=== PATIENT | female | born 1955 | race Caucasian/White ===

== ENCOUNTER 2016-06-30 08:30 | Inpatient (IN) | payer MEDICAID, MEDICARE ==
[~2016-06-30] VITALS: Ht 157.5 cm; Wt 141.4 kg
[2016-06-30 08:30] VITALS: BP 145/78; PULSE 84; RESP 23; O2SAT 96
[~2016-06-30 08:30] MED LIST: ALBU8.5H4 IH; AMLO5TAB2 PO; ARIP5TAB5 PO; CITA40TA13 PO; DSLF250T PO; GABA-502 PO; HYDR-579 PO; LIT300 PO; MELA1TAB21 PO; MIRT15TA3 PO; OMEP-113 PO; PREN-99 PO; RANI150C4 PO; TIOT18CA3 IH; ZES20T PO
--- NOTE | 2016-06-30 08:57 | ED.REPORT ---
HPI-Overdose/Alcohol Toxicity Date of Service Jun 30, 2016 ED Provider: Jens Medel MD The patient is a 60 year old male with history of bipolar disorder, prior suicide attempts, alcohol abuse, fibromyalgia, and hypertension, who presents to the emergency department by EMS for a suicide attempt. The patient states that she took a handful (about 20) of sleeping pills (doxylamine succinate 25 mg tablets) at around 0700 this morning in attempt to kill herself. She has been under a lot of stress recently. She reports that she is currently being evicted from her apartment. The patient states, "I just want to go to sleep and just not wake up. I am tired." She reports that she tried to kill herself last week by overdosing on Benadryl. She was not seen for this attempt. She denies homicidal ideation or hallucinations. She would like to be admitted to the hospital for help. She does not feel like she an be safe if she goes home today. Her only physical complaint at this time is that her mouth is dry. Nursing Notes Stated Complaint: OVERDOSE Chief Complaint: Substance Abuse Nursing Notes Reviewed: Yes Allergies: Coded Allergies: amoxicillin trihydrate (Verified Allergy, Intermediate, itching, 06/30/16) potassium clavulanate (Verified Allergy, Intermediate, itching, 06/30/16) Scheduled Amlodipine (Amlodipine) 5 Mg Tablet 5 MG PO DAILY Aripiprazole (Abilify) 5 Mg Tablet 5 MG PO HS Citalopram (Citalopram) 40 Mg Tablet 40 MG PO DAILY Disulfiram (Antabuse) 250 Mg Tablet 250 MG PO DAILY Gabapentin (Gabapentin) 300 Mg Capsule 300 MG PO TID Hydrocodone/Acetaminophen ([place] 10-325 Tablet) 1 Each Tablet 1 EACH PO Q8 Lisinopril-Expunged Drug, Do Not Renew! (Lisinopril-Expunged Drug, Do Not Renew! ) 20 Mg Tablet 20 MG PO DAILY [place] Carbonate ([place] Carbonate) 300 Mg Cap 300 MG PO DAILY Mirtazapine ODT (Remeron ODT) 15 Mg Tab.rapdis 15 MG PO HS Omeprazole Magnesium (Omeprazole) 20 Mg Capsule.dr 20 MG PO DAILY Pnv95/Ferrous Fumarate/FA ( Multivitamins Tablet) 1 Each Tablet 1 EACH PO DAILY Ranitidine (Ranitidine) 150 Mg Capsule 300 MG PO DAILY Tiotropium [place] (Spiriva) 18 Mcg Cap.w.dev 18 MCG IH DAILY Scheduled PRN Albuterol HFA (Albuterol HFA) 8.5 Gm Hfa.aer.ad 2 PUFF IH Q4 PRN PRN For Shortness of Breath Melatonin/Pyridoxine HCl (B6) (Melatonin 10 mg Tablet) 1 Each Tab.mphase 1 EACH PO HS PRN PRN For Insomnia General Time Seen by Provider: 08:45 Chief Complaint Drug overdose, Suicidal attempt Modifying Factors: Intentional Hx Obtained From: Patient, EMS Arrived By: Ambulance Onset Occurred: 1 - 4 hours ago Symptom Duration: Since onset Progression Since Onset: Gradually improving Severity: Current: No pain currently Severity: Maximum: No pain Recent Healthcare: No recent hospitalization Similar Sx Previous: Yes Risk-Overdose/Alcohol Tox )( Suicide Risk Stratification : Alcohol use: Previous attempt RF Statements: Risk factors reviewed Past Medical History Past Medical History Bipolar disorder Previous suicide attempts Hypertension Hyperlipidemia Asthma Fibromyalgia Chronic alcoholism Family History Noncontributory Smoking History Current Some Day Smoker Social History History of alcohol abuse Other Social History: Good social support, Local resident Ambulatory Status Independent Review of Systems Review of Systems Note: +dry mouth Psychiatric: Reports: Anxiety, Depression, Suicidal ideation Complete sys rev & neg: except as marked. Physical Exam Initial Vital Signs Vital Signs (First) Date Time Temp Pulse Resp B/P Pulse Ox O2 Delivery O2 Flow Rate FiO2 06/30/16 08:30 36.6 84 23 145/78 96 Room Air Initial VS: Reviewed Head / Eyes: Atraumatic, Normocephalic, PERRL Neck: Supple, Non-tender, Full range of motion Lymphatic: No lymphadenopathy Extremities: Vascular intact, Neuro intact, No swelling, No tenderness Skin: Warm, Dry, No cyanosis General/Constitutional: Awake, Alert, No acute distress, Cooperative Respiratory / Chest: Atraumatic, Breath sounds NL, Breath sounds = bilat, No respiratory distress, No rales, No rhonchi, No wheezing Cardiovascular: Heart rate NL, Regular rhythm, Heart sounds NL, No gallop, No murmurs, No rubs Abdomen: Atraumatic, Soft, Non-tender, No guarding, No rebound Neurologic: Oriented X3, Speech NL, No motor deficits, No sensory deficits Abnormal Thinking / Perception: Positive: Suicidal, with plan Interpretation & Diagnostics Lab Results Interpretation Result Diagram: 06/30/16 0933 06/30/16 0933 Test 06/30/16 09:33 06/30/16 09:44 White Blood Count 15.1th/mm3 (3.8-10.1) Red Blood Count 4.76mil/mm3 (3.90-5.20) Hemoglobin 15.5g/dL (12.0-15.6) Hematocrit 45.7% (35.0-46.0) Mean Corpuscular Volume 96.0fL (81-100) Mean Corpuscular Hemoglobin 32.6pg (27.0-35.0) Mean Corpuscular Hemoglobin Concent 33.9% (32.0-37.0) Red Cell Distribution Width 12.3% (12.3-15.4) Platelet Count 269bil/L (150-400) Neutrophils (%) (Auto) 80.7% (40-74) Lymphocytes (%) (Auto) 11.9% (14-46) Monocytes (%) (Auto) 6.4% (4-12) Eosinophils (%) (Auto) 0.6% (0-5) Basophils (%) (Auto) 0.2% (0-3) Sodium Level 140mEq/L (134-144) Potassium Level 3.9mEq/L (3.5-5.2) Chloride Level 102mEq/L (97-108) Carbon Dioxide Level 21mmol/L (18-29) Blood Urea Nitrogen 11mg/dL (6-24) Creatinine 0.68mg/dL (0.57-1.00) Estimat Glomerular Filtration Rate 127mL/min (>59) Glucose Level 89mg/dL (60-99) Calcium Level 9.8mg/dL (8.5-10.1) Total Bilirubin 0.6mg/dL (0.0-1.2) Aspartate Amino Transf (AST/SGOT) 17U/L (0-50) Alanine Aminotransferase (ALT/SGPT) 7U/L (0-32) Alkaline Phosphatase 77U/L (25-150) Total Protein 7.2g/dL (6.4-8.4) Albumin 4.7g/dL (3.4-5.0) Thyroid Stimulating Hormone (TSH) 1.230uIU/mL (0.450-4.500) Salicylates Level < 3.0ug/mL (30-250) Acetaminophen Level < 15.0ug/mL Rx (10-25) Urine Color Yellow (YELLOW) Urine Appearance Clear (CLEAR,HAZY) Urine pH 6.0 (5.0-8.0) Urine Specific [place] 1.010 (1.003-1.035) Urine Protein Negativemg/dL (NEG,TRACE) Urine Glucose (UA) Negativemg/dL (NEGATIVE) Urine Ketones Negativemg/dL (NEGATIVE) Urine Occult Blood Trace (NEGATIVE) Urine Nitrite Negative (NEGATIVE) Urine Bilirubin Negative (NEGATIVE) Urine Urobilinogen Normalmg/dL (NORMAL) Urine Leukocyte Esterase Negative (NEGATIVE) Urine RBC 0-2/hpf (0-2) Urine WBC 0-5/hpf (0-5) Urine Epithelial Cells Moderate/hpf (NONE-MOD) Urine Crystals None seen (NONE SEEN) Urine Bacteria Few/hpf (NONE-FEW) Urine Hyaline Casts None/lpf (NONE) Urine Granular Casts None seen (NONE SEEN) Urine Waxy Casts None seen (NONE SEEN) Urine Red Blood Cell Casts None seen (NONE SEEN) Urine White Blood Cell Casts None seen (NONE SEEN) Urine Mucus Present (None Seen) Urine Trichomonas None seen (NONE SEEN) Urine Yeast None (NONE SEEN) Urinalysis Comment None Urine Culture Reflexed Not indicated Hold Urine Received (Received) ECG Interpretation ECG Interpretation: Sinus rhythm No ST T changes PVC Time: 09:41 Interpreted by: ED physician Re-Eval/Medical Decision Med Decision/Clinical Course 60-year-old female with history of bipolar presenting status post suicide attempt with doxylamine reports a handful just prior to arrival. She reports she was trying to kill herself due to stresses with being evicted. Discussed with poison control who recommends monitoring for symptoms of anticholinergic toxicity until 1 PM. We observed and patient with no symptoms other than some dry mouth. Discussed with social work who evaluated patient and admitted her for voluntary admission to the psychiatric [facility]. Source of Hx: Old records, EMS Re-Evaluation/Progress #1: Time of Eval: 09:29 Re-Evaluation/Progress Note: ED RN spoke with poison control who recommended monitoring the patient for 6-8 hours. Re-Evaluation/Progress #2: Time of Eval: 10:19 Re-Evaluation/Progress Note: Discussed plan for observation and social work instructor evaluation. Re-Evaluation/Progress #3: Time of Eval: 14:48 Re-Evaluation/Progress Note: Discussed plan for admission with the patient. She understands and agrees. All questions were addressed. Consultation #1: Consulted With: odd job worker Call Returned at: 11:07 Note: ED social work instructor evaluated the patient. The patient received noticed from her apartment quite a while ago and today was the last day before she is going to be kicked out. The patient does not feel like she is able to stay with either of her children. The social work instructor will work on finding placement for the patient. Consultation #2: Call Returned at: 14:43 Note: [facility] Dr. Villaseñor will admit the patient. Counseled Regarding: Diagnosis, Lab results, Need for admission Discharge & Departure Impression: Primary Impression: Medication overdose Encounter type: initial encounter Injury intent: intentional self-harm Qualified Code: T50.902A - Poisoning by unspecified drugs, medicaments and biological substances, intentional self-harm, initial encounter )( Condition at Discharge: Clear for psych facility Disposition: ADMITTED TO HOSPITAL Discharge Condition All VS Reviewed: Yes Condition: Stable Referrals: Abner Malik (PCP) Terezaibradha Attestation Portions of this note were transcribed by Anastasiya Rosales. I, Dr. Medel personally performed the history, physical exam and medical decision-making; I reviewed and confirmed the accuracy of the information in the transcribed note. Signed by: Stacy Giles, 06/30/2016 at 1500. copies to: Abner Malik Ben M MD Jun 30, 2016 08:57 Anastasiya Rosales Jun 30, 2016 09:02
[2016-06-30 09:44] LABS: BASOPHILS % (AUTO) 0.2 % (0-3); EOSINOPHILS % (AUTO) 0.6 % (0-5); MONOCYTES % (AUTO) 6.4 % (4-12); Mean Corpuscular Hemoglobin 32.6 pg (27.0-35.0); NEUTROPHILS % (AUTO) 80.7 % (40-74); Platelet Count 269 bil/L (150-400)
[2016-06-30 10:21] VITALS: BP 144/70; PULSE 80; RESP 19; O2SAT 94
[2016-06-30 11:24] LABS: APPEARANCE,URINE CLEAR (CLEAR,HAZY); COLOR,URINE YELLOW (YELLOW); OCCULT BLOOD,URINE TRACE (NEGATIVE); UROBILINOGEN,URINE NORMAL (NORMAL)
[2016-06-30 12:05] VITALS: BP 145/61; PULSE 77; RESP 22; O2SAT 94
[2016-06-30] MEDS ORDERED: Ondansetron 2 mg/mL 2 mL Inj IVPUSH PRN (14:45)
[2016-06-30] MEDS ORDERED: Alum-Mag Hydrox-Simeth 30 mL Suspension PO PRN ×2 (14:45→17:40)
[2016-06-30 14:57] VITALS: BP 134/64; PULSE 76; RESP 17; O2SAT 95
[2016-06-30] MEDS ORDERED: Magnesium Hydroxide 10 mL Oral Concentration PO PRN (17:40)
[2016-06-30] MEDS ORDERED: Benzocaine-Menthol Lozenge 2/Pkg PO PRN (17:40)
[2016-06-30] MEDS: LORazepam 1 mg Tablet PO PRN (20:18)
[2016-07-01 09:00] VITALS: BP 132/91; PULSE 85; RESP 16
[2016-07-01] MEDS ORDERED: Albuterol HFA 60 Puff 8 Gm Inhaler INHALATION PRN ×2 (09:15→10:10)
[2016-07-01] MEDS: Tiotropium 18mcg/Cap 5 Capsule Inhaler Kit INHALATION SCH (09:26)
[2016-07-01] MEDS: LORazepam 1 mg Tablet PO PRN ×2 (09:28→17:45)
--- NOTE | 2016-07-01 11:54 | HP ---
[address] [address] HISTORY AND PHYSICAL PATIENT: JORGE ORTEGA : 1955 MR#: [id number] ADMIT: 06/30/2016 JOB ID: [id number] DATE: 07/01/2016 IDENTIFICATION: Patient is a 60-year-old single white female. She recently was evicted from her apartment. She is on Social Security Disability for bipolar disorder. REASON FOR ADMISSION: Client to the emergency room after a suicide attempt by overdose. She stated that she took 20 sleeping pills in a suicide attempt, brand name Doxylamine at 7:30 a.m. on June 30. She was admitted for safety and treatment. HISTORY OF PRESENT ILLNESS: The patient presents today for evaluation and treatment of depression and suicidal ideation. I met with her for a 60 minute evaluation and reviewed course and records kept by [facility]. The patient's main issue is depression, and she is complaining of suicidal ideation with a plan to overdose on her pills. The condition has been developing over the past month. At present, it is of a moderate intensity manifesting with symptoms of poor sleep, interest, guilt, poor energy, concentration, and now suicidal ideation. She stated she has thought of killing herself all day every day for the past month. All the above is made worse by three different stressors. Number one, she lost her money and is being evicted from her apartment. Two, she has lost her money and has been off all of her medications because she cannot buy the Abilify or the Celexa. Three, she had been on hydrocodone 10 mg four times a day, and she got a new doctor last month and all of her hydrocodone has been cut off. She received some temporary relief by smoking marijuana daily. She has been a severe alcoholic in the past but had 10 years of sobriety in her 30s and has been sober for the past three years from alcohol. She is currently presenting with significant emotional liability and poor impulse control. Her judgment, insight, and reality testing are all quite good. Her coping skills have been overwhelmed. PAST HISTORY MEDICATIONS: 1. Albuterol metered-dose inhaler. 2. Spiriva inhaler. 3. Amlodipine 5 mg daily. 4. Abilify 5 mg daily. 5. Gabapentin 300 t.i.d. 6. Celexa 40 daily. 7. Remeron 15 at bedtime. ALLERGIES: 1. AMOXICILLIN. 2. POTASSIUM CLAVULANATE. ILLNESSES: Fibromyalgia, hypertension, report of cardiomyopathy. FAMILY MEDICAL HISTORY: Mother when she was 13. PAST PSYCH HISTORY: Bipolar mood disorder, admitted to the [facility] in 2013 and 2014 for depression. She stated that she worked for [employer] and had been manic from 1990 to 1999 then depressed 2000 to present. PSYCHOSOCIAL: Born in [facility], and raised there until age 9 when they moved to [place]. She dropped out of high school in the 10th grade. She got a GED at age 32. 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 DRUG AND ALCOHOL: Client was a heavy alcoholic from age 22 to 57, was sober between 32 and 42, and has been sober from 57 to 60 except for daily marijuana. RELATIONSHIP HISTORY: and . Two grown children that live in [place] in [facility]. [employer]IST: Hindu. LEGAL HISTORY: None. PHYSICAL EXAM: Vital signs: 134/64, pulse 76, respirations 17, afebrile. Neuro: Normal gait. Balance steady. Physical exam reviewed from ER and essentially normal. LABORATORY DATA: CBC, liver electrolytes, thyroid normal. UA normal. UDS positive for cannabinoids. Urine tox positive for THC. MENTAL STATUS EXAM: Client disheveled, morbidly obese, poor eye contact. Behavior was lethargic and withdrawn. Attitude was cooperative and pleasant. Mood was dysphoric. Affect labile, having tears for nearly the whole session. Thought process: Client is able to relate a coherent history. No signs of psychosis. Thought content: Significant for themes of hopelessness and helplessness and black and white thinking, seeing suicide as her only option. There was no delusional content to her thought. Alert and oriented to person, place, and date. Immediate, short, and long-term memory intact. Attention and concentration mildly impaired. Insight appropriate. Judgment impaired. Impulse control, unable to handle current impulses of fear, anger, and sadness. Reality testing intact. Competence to handle current stressors is currently being overwhelmed. IMPRESSION: The patient is a 60-year-old white female who is been struggling with health issues related to obesity, and chronic pain. She recently had her primary care doctor refuse to prescribe hydrocodone which she was taking four times a day. She has been off this for the past month. Since then, she has lost her home due to not being able to pay for the rent, and she was unable to buy her Abilify, gabapentin, or Celexa. She she was evicted from her home the past several days and is in severe grief. She saw suicide as the only option and took 20 pills in a suicide attempt. Client has a history of successful employment and being able to participate in a 12 step program actively for 10 years. I believe with appropriate care and guidance that she can again take charge of her life and develop a more stable routine. DIAGNOSIS: AXIS I: 1. Bipolar mood disorder, depressed with suicidal ideation. 2. History of severe alcoholism. 3. Cannibis abuse. AXIS II: Deferred. AXIS III: History of fibromyalgia, hypertension, reported cardiomyopathy. AXIS IV: Severe. AXIS V: Current Global Assessment of Functioning equal to 35. PLAN: Recommend client be admitted to our unit, be provided with a high degree of safety through the structure and active adult engagement she will receive here. Will have her participate in one-to-one unit and group activities focused on improving coping skills and helping her come up with a safety plan should suicidal ideation return as an outpatient. I believe client's medications are appropriate, that she needs to take them on a regular schedule and be able to afford them. Will continue Abilify 5 daily, 40 daily, Remeron 15 at bedtime, and gabapentin 300 t.i.d. The patient is a voluntary client. Anticipate 5-7 day stay. ADDITIONAL INFORMATION: I missed the urine tox was positive for both marijuana, methadone, and tricyclic antidepressants. Addenda by BD 07/01/16 1:53
[2016-07-02] MEDS: Tiotropium 18mcg/Cap 5 Capsule Inhaler Kit INHALATION SCH ×2 (08:49→08:52)
[2016-07-02] MEDS: LORazepam 1 mg Tablet PO PRN ×3 (09:13→18:01)
[2016-07-02 11:34] VITALS: BP 146/95; PULSE 92; RESP 16
--- NOTE | 2016-07-02 12:53 | PCM.PNPSY ---
Subjective Date of Service Jul 02, 2016 Subjective I spent 30 minutes both reviewing treatment plan with clinical team, interviewing the patient and providing supportive/educational psychotherapy. I spent more than 50% of the time counseling the patient. I reviewed the treatment plan with the patient and discussed options available including the potential risks, benefits and side effects. Sarah reports a continued struggle with a depressed mood (bordering on suicidal ideation), lethargy, apathy, exhaustion, and mood instability poor thought organization due to being emotionally overwhelmed. Staff reports that she has been isolating in her room and sleeping and not able to participate well in one-to-one unit and group activities. She slept 8 hours . She denies medication side effects. Patient was able to identify her medications and what they were used to treat. Current Medications Current Medications Acetaminophen 650 mg Q4H PRN PO Last administered on 07/01/16 08:40; Admin Dose 650 MG; Start 06/30/16 at 17:40 Albuterol 2 puff Q4H PRN INHALATION Last administered on 07/01/16 09:23; Admin Dose 2 PUFF; Start 07/01/16 at 09:15 Amlodipine Besylate 5 mg DAILY PO Last administered on 07/02/16 08:48; Admin Dose 5 MG; Start 07/01/16 at 10:10 Aripiprazole 5 mg HS PO Last administered on 07/01/16 20:34; Admin Dose 5 MG; Start 07/01/16 at 21:00 Citalopram Hydrobromide 40 mg DAILY PO Last administered on 07/02/16 08:50; Admin Dose 40 MG; Start 07/02/16 at 08:30 Gabapentin 300 mg TID PO Last administered on 07/02/16 08:48; Admin Dose 300 MG ; Start 07/01/16 at 14:30 Hydroxyzine Pamoate 50 mg Q4H PRN PO Last administered on 06/30/16 17:52; Admin Dose 50 MG; Start 06/30/16 at 17:40 Lorazepam 1 mg Q4H PRN PO Last administered on 07/02/16 12:26; Admin Dose 1 MG ; Start 06/30/16 at 17:40 Mirtazapine 15 mg HS PO Last administered on 07/01/16 20:34; Admin Dose 15 MG; Start 07/01/16 at 21:00 Mirtazapine 15 mg HS PRN PO Last administered on 06/30/16 21:37; Admin Dose 15 MG; Start 06/30/16 at 17:45 Nicotine 1 patch DAILY TOPICAL Last administered on 07/02/16 08:52; Admin Dose 1 PATCH; Start 07/01/16 at 08:30 Tiotropium [place] 18 mcg DAILY INHALATION Last administered on 07/02/16 08:49; Admin Dose 18 MCG; Start 07/02/16 at 08:30 Tiotropium [place] 18 mcg DAILY INHALATION Last administered on 07/02/16 08:52; Admin Dose 18 MCG; Start 07/02/16 at 08:30 Mental Status Exam Vital Signs Vital Signs Date Time Temp Pulse Resp B/P Pulse Ox O2 Delivery O2 Flow Rate FiO2 07/02/16 11:34 37.0 92 16 146/95 Appearance: Unkept, Disheveled Attitude: Pleasant, Cooperative Behavior: Other (lethargic) Affect: Labile Mood: Anxious, Fearful Thought Process/Associations: Goal Directed Speech Production: Normal Speech Rate: Normal Speech Articulation: Normal Thought Content: Negativistic, Guilt Danger to Self/Suicidal Ideati: Active Danger to Others: None Consciousness: Somnolent, Lethargic Orientation: Person, Place, Date, Situation Memory: Grossly Intact Estimate Intellectual Function: Average Basis for IQ estimate: Awareness current events Attention/Concentration & Cogn: Impaired Insight: Good Judgement: Limited Result Diagram: 06/30/1693206/30/16932 Mental Health Plan The patient is a 60-year-old white female who is been struggling with health issues related to obesity, and chronic pain. She recently had her primary care doctor refuse to prescribe hydrocodone which she was taking four times a day. She has been off this for the past month. Since then, she has lost her home due to not being able to pay for the rent, and she was unable to buy her Abilify, gabapentin, or Celexa. She she was evicted from her home the past several days and is in severe grief. She saw suicide as the only option and took 20 pills in a suicide attempt. Client has a history of successful employment and being able to participate in a 12 step program actively for 10 years. I believe with appropriate care and guidance that she can again take charge of her life and develop a more stable routine. She feels 20% improved today and and has been taking medications. [place] AXIS I: 1. Bipolar mood disorder, depressed with suicidal ideation. 2. History of severe alcoholism. 3. Cannibis abuse. AXIS II: Deferred. AXIS III: History of fibromyalgia, hypertension, reported cardiomyopathy. AXIS IV: Severe. AXIS V: Current Global Assessment of Functioning equal to 35. Medications Treatments Patient is being provided with a high degree of safety through the structure and active adult engagement. We will focus on developing improved coping skills and identifying stressors that may have led to current episode. We will attempt to: Integrate into therapeutic groups, milieu and individual therapy. Maintain in a closely monitored and structured unit Provide low-stimulation environment Obtain collateral data to assist in treatment planning Assess degree of lability of affect and impulse control Complete safety plan Decrease frequency of relapse and need for re-hospitalization Denies thoughts of harm to self Establish a consistent sleep pattern Medication effective in stabilization of mood and/or thought process Reduce the risk of imminent harm to self and/or others by providing a safe environment Tolerates medication without side effects Patient will be on the following psychiatric medications: Abilify 5 mg daily Celexa 40 mg daily Remeron 15 mg at bedtime Gabapentin 300 mg 3 times a day Education: Educate patient about recreational drug use as an etiology Educate about metabolic etiologies related to obesity Address patient's legal status Voluntary 5 day certification up on Monday Disposition: Radha was evicted from her home. She will have her social security check on Monday. She will need options in terms of potential custodial. Corey Villaseñor MD Jul 02, 2016 12:53
[2016-07-03 08:05] VITALS: BP 122/74; PULSE 92; RESP 19
[2016-07-03] MEDS: Tiotropium 18mcg/Cap 5 Capsule Inhaler Kit INHALATION SCH ×2 (08:30→08:49)
[2016-07-03] MEDS: LORazepam 1 mg Tablet PO PRN ×3 (10:17→20:51)
--- NOTE | 2016-07-03 10:42 | PCM.PNPSY ---
Subjective Date of Service Jul 03, 2016 Subjective I spent 30 minutes both reviewing treatment plan with clinical team, interviewing the patient and providing supportive/educational psychotherapy. I spent more than 50% of the time counseling the patient. I reviewed the treatment plan with the patient and discussed options available including the potential risks, benefits and side effects. Sarah reports a continued struggle with a depressed mood with suicidal ideation of overdosing on her pills, lethargy, apathy, exhaustion, and mood instability. She complains of poor thought organization due to being emotionally overwhelmed. Staff reports that she has been isolating in her room and sleeping and not able to participate well in one-to-one unit and group activities. She slept 8 hours . She denies medication side effects. Patient was able to identify her medications and what they were used to treat. Current Medications Current Medications Aripiprazole 5 mg HS PO Last administered on 07/02/16 20:35; Admin Dose 5 MG; Start 07/01/16 at 21:00 Citalopram Hydrobromide 40 mg DAILY PO Last administered on 07/03/16 08:48; Admin Dose 40 MG; Start 07/02/16 at 08:30 Gabapentin 300 mg TID PO Last administered on 07/03/16 08:48; Admin Dose 300 MG ; Start 07/01/16 at 14:30 Mirtazapine 15 mg HS PO Last administered on 07/02/16 20:35; Admin Dose 15 MG; Start 07/01/16 at 21:00 Tiotropium [place] 18 mcg DAILY INHALATION Last administered on 07/02/16 08:52; Admin Dose 18 MCG; Start 07/02/16 at 08:30 Tiotropium [place] 18 mcg DAILY INHALATION Last administered on 07/03/16 08:49; Admin Dose 18 MCG; Start 07/02/16 at 08:30 Mental Status Exam Vital Signs Vital Signs Date Time Temp Pulse Resp B/P Pulse Ox O2 Delivery O2 Flow Rate FiO2 07/03/16 08:05 36.8 92 19 122/74 Appearance: Unkept, Disheveled Attitude: Pleasant, Cooperative Behavior: Other (lethargic) Affect: Labile Mood: Anxious, Fearful Thought Process/Associations: Goal Directed Speech Production: Normal Speech Rate: Normal Speech Articulation: Normal Thought Content: Negativistic, Guilt Danger to Self/Suicidal Ideati: Active Danger to Others: None Consciousness: Somnolent, Lethargic Orientation: Person, Place, Date, Situation Memory: Grossly Intact Estimate Intellectual Function: Average Basis for IQ estimate: Awareness current events Attention/Concentration & Cogn: Impaired Insight: Good Judgement: Limited Result Diagram: 06/30/16 0933 06/30/16 0933 Mental Health Plan The patient is a 60-year-old white female who is been struggling with health issues related to obesity, and chronic pain. She recently had her primary care doctor refuse to prescribe hydrocodone which she was taking four times a day. She has been off this for the past month. Since then, she has lost her home due to not being able to pay for the rent, and she was unable to buy her Abilify, gabapentin, or Celexa. She she was evicted from her home the past several days and is in severe grief. She saw suicide as the only option and took 20 pills in a suicide attempt. Client has a history of successful employment and being able to participate in a 12 step program actively for 10 years. I believe with appropriate care and guidance that she can again take charge of her life and develop a more stable routine. She feels 20% improved today and and has been taking medications. Each day Sarah appears healthier and stronger. I believe this is in part to our therapy and medications And in part to the fact that she is not drinking alcohol or smoking a pack of cigarettes a day. She is requesting additional days to recover and to adjust her medications. Her insurance certification is up in 24 hours and will need to be reapplied if she is to stay longer. [place] AXIS I: 1. Bipolar mood disorder, depressed with suicidal ideation. 2. History of severe alcoholism. 3. Cannibis abuse. AXIS II: Deferred. AXIS III: History of fibromyalgia, hypertension, reported cardiomyopathy. AXIS IV: Severe. AXIS V: Current Global Assessment of Functioning equal to 35. Medications Treatments Patient is being provided with a high degree of safety through the structure and active adult engagement. We will focus on developing improved coping skills and identifying stressors that may have led to current episode. We will attempt to: Integrate into therapeutic groups, milieu and individual therapy. Maintain in a closely monitored and structured unit Provide low-stimulation environment Obtain collateral data to assist in treatment planning Assess degree of lability of affect and impulse control Complete safety plan Decrease frequency of relapse and need for re-hospitalization Denies thoughts of harm to self Establish a consistent sleep pattern Medication effective in stabilization of mood and/or thought process Reduce the risk of imminent harm to self and/or others by providing a safe environment Tolerates medication without side effects Patient will be on the following psychiatric medications: Abilify 5 mg daily Celexa 40 mg daily Remeron 15 mg at bedtime Gabapentin 300 mg 3 times a day Education: Educate patient about recreational drug use as an etiology Educate about metabolic etiologies related to obesity Address patient's legal status Voluntary 5 day certification up on Monday, patient will likely need an additional 3 days to stabilize. Disposition: Radha was evicted from her home. She will have her social security check on Monday. She will need options in terms of potential correction. Corey Villaseñor MD Jul 03, 2016 10:42
[2016-07-04] MEDS: Tiotropium 18mcg/Cap 5 Capsule Inhaler Kit INHALATION SCH ×2 (08:24)
[2016-07-04 10:08] VITALS: BP 124/80; PULSE 95; RESP 16
[2016-07-04] MEDS: LORazepam 1 mg Tablet PO PRN ×2 (13:23→18:51)
[2016-07-04] MEDS: ARIPiprazole 10 mg Tablet PO SCH (13:51)
--- NOTE | 2016-07-04 16:39 | PCM.PNPSY ---
Subjective Date of Service Jul 04, 2016 Subjective The patient reports that she is feeling "Eh" and that she is "just tired of myself." She reports no significant improvement with current medications but admits that she had been off citalopram for 3 weeks or more and Abilify for 5 days prior to admission. She reported that her mood was the best when she had been on Abilify for approximately 1 year and then gradually deteriorated. We discussed increasing the dose and she was agreeable. We also discussed the option of lamotrigine and discontinuing one of her other medications such as mirtazapine but she preferred to stay on the mirtazapine. Sleep: 8.5 hours Appetite: "Fine" Suicidal and homicidal ideation: Endorses passive suicidal ideation but no intent to act on it at this time while in the hospital but is unsure whether she would be safe on discharge. Auditory hallucinations/Visual hallucinations: Denies Other Psychotic Symptoms: N/A Anxiety: 12/11 Depression: 12/11 Current Medications Current Medications Aripiprazole 10 mg DAILY PO Last administered on 07/04/16t 13:51; Admin Dose 10 MG; Start 07/04/16 at 13:48 Mental Status Exam Vital Signs Vital Signs Date Time Temp Pulse Resp B/P Pulse Ox O2 Delivery O2 Flow Rate FiO2 07/04/16 10:08 37.3 95 16 124/80 Appearance: Unkept, Disheveled Attitude: Pleasant, Cooperative Behavior: Other (lethargic) Affect: Blunted Mood: Depressed, Anxious Thought Process/Associations: Goal Directed Speech Production: Paucity Speech Rate: Lags/Latency Speech Articulation: Normal Thought Content: Negativistic, Guilt Danger to Self/Suicidal Ideati: Active Danger to Others: None Hallucinations: Auditory (Denies), Visual (Denies) Consciousness: Somnolent, Lethargic Orientation: Person, Place, Date, Situation Memory: Grossly Intact Estimate Intellectual Function: Average Basis for IQ estimate: Awareness current events Attention/Concentration & Cogn: Impaired Insight: Good Judgement: Limited Result Diagram: 06/30/1633 06/30/16932 Mental Health Plan The patient is a 60-year-old white female who is been struggling with health issues related to obesity, and chronic pain. She recently had her primary care doctor refuse to prescribe hydrocodone which she was taking four times a day. She has been off this for the past month. Since then, she has lost her home due to not being able to pay for the rent, and she was unable to buy her Abilify , gabapentin, or Celexa. She she was evicted from her home the past several days and is in severe grief. She saw suicide as the only option and took 20 pills in a suicide attempt. Client has a history of successful employment and being able to participate in a 12 step program actively for 10 years. I believe with appropriate care and guidance that she can again take charge of her life and develop a more stable routine. Today, we discussed switching Abilify to mornings as this may being disrupting her sleep. Taking a test dose in the early afternoon did not appear to cause somnolence and the patient would like to continue with daily administration. [place] AXIS I: 1. Bipolar mood disorder, depressed with suicidal ideation. 2. History of severe alcoholism. 3. Cannibis abuse. AXIS II: Deferred. AXIS III: History of fibromyalgia, hypertension, reported cardiomyopathy. AXIS IV: Severe. AXIS V: Current Global Assessment of Functioning equal to 35. Medications Treatments 1. The patient is admitted to the inpatient unit and will be provided a safe and secure environment. 2. The patient is reporting passive suicidal ideation but is denying current active suicidality and is not in need of a one-to-one at this time. 3. The patient is encouraged to participate with group and milieu activities. 4. The patient will be seen by the treatment team on a daily basis to assess symptoms, side effects and response to treatment. 5. The patient will be continued on as citalopram 40 mg daily. 6. The patient will be continued on mirtazapine 15 mg nightly and consider switching to as needed. 7. Gabapentin 300 mg three times a day for pain. 8. Aripiprazole be increased to 10 mg and switch to daily administration. 9. Anticipated length of stay is 3-5 days. Benny Molina MD Jul 04, 2016 16:39
[2016-07-05 09:00] VITALS: BP 143/93; PULSE 93; RESP 18
[2016-07-05] MEDS: ARIPiprazole 10 mg Tablet PO SCH (09:10)
[2016-07-05] MEDS: Tiotropium 18mcg/Cap 5 Capsule Inhaler Kit INHALATION SCH (09:10)
[2016-07-05] MEDS: LORazepam 1 mg Tablet PO PRN ×2 (09:18→19:35)
--- NOTE | 2016-07-05 19:51 | PCM.PNPSY ---
Subjective Date of Service Jul 05, 2016 Subjective The patient reports that she is feeling "Alright, I guess," but denies feeling that there is any significant change from yesterday. She reports still feeling that she doesn't "want to be here, feeling pretty tired." Reports her thoughts are going slowly, which is an improvement. She denies side effects. Sleep: 8.5 hours Appetite: "Fine" Suicidal and homicidal ideation: Endorses passive suicidal ideation but no plan or intent to act on it. Auditory hallucinations/Visual hallucinations: Denies Other Psychotic Symptoms: N/A Anxiety: -11/10, yesterday 12/11 Depression: 11/10, yesterday 12/11 Current Medications Current Medications Aripiprazole 10 mg DAILY PO Last administered on 07/05/16 09:10; Admin Dose 10 MG; Start 07/04/16 at 13:48 Mental Status Exam Appearance: Unkept, Disheveled Attitude: Pleasant, Cooperative Behavior: Other (lethargic) Affect: Blunted Mood: Depressed, Anxious Thought Process/Associations: Goal Directed Speech Production: Paucity Speech Rate: Lags/Latency Speech Articulation: Normal Thought Content: Negativistic, Guilt Danger to Self/Suicidal Ideati: Passive Danger to Others: None Hallucinations: Auditory (Denies), Visual (Denies) Consciousness: Somnolent, Lethargic Orientation: Person, Place, Date, Situation Memory: Grossly Intact Estimate Intellectual Function: Average Basis for IQ estimate: Awareness current events Attention/Concentration & Cogn: Impaired Insight: Good Judgement: Limited Result Diagram: 06/30/1633 06/30/16 0933 Mental Health Plan The patient is a 60-year-old white female who has been struggling with health issues related to obesity, and chronic pain. The patient has a history of successful employment and being able to participate in a 12 step program actively for 10 years. She recently had her primary care doctor refuse to prescribe hydrocodone which she was taking four times a day. She has been off this for the past month. Since then, she has lost her home due to not being able to pay for the rent, and she was unable to buy her Abilify, gabapentin, or Celexa. She reportedly saw suicide as the only option and took 20 pills in a suicide attempt. Although the patient reports no change in symptoms and is still reporting passive suicidal ideation, she rates both anxiety and depression having improved. [place] AXIS I: 1. Bipolar disorder, depressed without psychotic features. 2. Alcohol use disorder 3. Cannibis use disorder AXIS II: Deferred. AXIS III: History of fibromyalgia, hypertension, reported cardiomyopathy. AXIS IV: Severe. AXIS V: Current Global Assessment of Functioning equal to 35. Treatments 1. The patient is admitted to the inpatient unit and will be provided a safe and secure environment. 2. The patient is reporting passive suicidal ideation but is denying current active suicidality and is not in need of a one-to-one at this time. 3. The patient is encouraged to participate with group and milieu activities. 4. The patient will be seen by the treatment team on a daily basis to assess symptoms, side effects and response to treatment. 5. The patient will be continued on citalopram 40 mg daily. 6. The patient will be continued on mirtazapine 15 mg nightly and consider increasing as indicated for augmentation. 7. Gabapentin 300 mg three times a day for pain. 8. Aripiprazole continued at 10 mg po daily. 9. Anticipated length of stay is 3-5 days. Benny Molina MD Jul 05, 2016 19:51 Benny Molina MD Jul 05, 2016 19:51 9. Anticipated length of stay is 3-5 days. Benny Molina MD Jul 05, 2016 19:51
[2016-07-06] MEDS: ARIPiprazole 10 mg Tablet PO SCH (08:16)
[2016-07-06] MEDS: Tiotropium 18mcg/Cap 5 Capsule Inhaler Kit INHALATION SCH (08:30)
[2016-07-06] MEDS: LORazepam 1 mg Tablet PO PRN (18:18)
--- NOTE | 2016-07-06 21:04 | PCM.PNPSY ---
Subjective Date of Service Jul 06, 2016 Subjective The patient reports that she is feeling "Alright, I guess," and reports feeling somewhat better. She reports being "really sleepy" and requests Abilify at bedtime. She reports still feeling that she doesn't "want to be alive." Reports her thoughts are still going slowly, which is an improvement. She denies side effects outside of above. Sleep: 8+ hours, "tossed and turned" Appetite: "Fine" Suicidal and homicidal ideation: Endorses passive suicidal ideation "10/10" but no plan or intent to act on it. Auditory hallucinations/Visual hallucinations: Denies Other Psychotic Symptoms: N/A Anxiety: 10/10, yesterday -11/10 Depression: 11/10, yesterday 11/10 Mental Status Exam Appearance: Unkept, Disheveled Attitude: Pleasant, Cooperative Behavior: Other (lethargic) Affect: Blunted Mood: Depressed, Anxious Thought Process/Associations: Goal Directed Speech Production: Paucity Speech Rate: Lags/Latency Speech Articulation: Normal Thought Content: Negativistic, Guilt Danger to Self/Suicidal Ideati: Passive Danger to Others: None Hallucinations: Auditory (Denies), Visual (Denies) Consciousness: Somnolent, Lethargic Orientation: Person, Place, Date, Situation Memory: Grossly Intact Estimate Intellectual Function: Average Basis for IQ estimate: Awareness current events Attention/Concentration & Cogn: Impaired Insight: Good Judgement: Limited Result Diagram: 06/30/16 0933 06/30/16 0933 Mental Health Plan The patient is a 60-year-old white female who has been struggling with health issues related to obesity, and chronic pain. The patient has a history of successful employment and being able to participate in a 12 step program actively for 10 years. She recently had her primary care doctor refuse to prescribe hydrocodone which she was taking four times a day. She has been off this for the past month. Since then, she has lost her home due to not being able to pay for the rent, and she was unable to buy her Abilify, gabapentin, or Celexa. She reportedly saw suicide as the only option and took 20 pills in a suicide attempt. The patient reports some sedation today after aripiprazole and requests change back to pm. Patient reports anxiety/depression somewhat improved. Patient still working on finding housing. [place] AXIS I: 1. Bipolar disorder, depressed without psychotic features. 2. Alcohol use disorder 3. Cannibis use disorder AXIS II: Deferred. AXIS III: History of fibromyalgia, hypertension, reported cardiomyopathy. AXIS IV: Severe. AXIS V: Current Global Assessment of Functioning equal to 35. Treatments 1. The patient is admitted to the inpatient unit and will be provided a safe and secure environment. 2. The patient is reporting passive suicidal ideation but is denying current active suicidality and is not in need of a one-to-one at this time. 3. The patient is encouraged to participate with group and milieu activities. 4. The patient will be seen by the treatment team on a daily basis to assess symptoms, side effects and response to treatment. 5. The patient will be continued on citalopram 40 mg daily. 6. The patient will be continued on mirtazapine 15 mg nightly and consider increasing as indicated for augmentation. 7. Gabapentin 300 mg three times a day for pain. 8. Aripiprazole change to 10 mg po nightly. 9. Anticipated length of stay is 3-5 days. Benny Molina MD Jul 06, 2016 21:03
[2016-07-07] MEDS: Tiotropium 18mcg/Cap 5 Capsule Inhaler Kit INHALATION SCH (07:36)
[2016-07-07] MEDS: LORazepam 1 mg Tablet PO PRN ×3 (12:23→20:32)
--- NOTE | 2016-07-07 15:29 | PCM.PNPSY ---
Subjective Date of Service Jul 07, 2016 Subjective The patient reports that she is "tired this morning" but reports that her symptoms are somewhat better. Regarding her chronic passive suicidal thoughts she states, "feeling a little mixed" she reports that when the negative thoughts about "not wanting to be here" come to mind she is now able to say, "stop it!" She is so far been unable to find housing. She denies side effects outside of above. Sleep: 8+ hours, Appetite: "Fine" Suicidal and homicidal ideation: Endorses passive suicidal ideation as above but no plan or intent to act on it. Auditory hallucinations/Visual hallucinations: Denies Other Psychotic Symptoms: N/A Anxiety: 10/10, yesterday 10/10 Depression: 10/10, yesterday 11/10 Mental Status Exam Appearance: Unkept Attitude: Pleasant, Cooperative Behavior: Other (lethargic) Affect: Blunted Mood: Depressed, Anxious Thought Process/Associations: Goal Directed Speech Production: Paucity Speech Rate: Lags/Latency Speech Articulation: Normal Thought Content: Negativistic, Guilt Danger to Self/Suicidal Ideati: Passive Danger to Others: None Hallucinations: Auditory (Denies), Visual (Denies) Consciousness: Somnolent, Lethargic Orientation: Person, Place, Date, Situation Memory: Grossly Intact Estimate Intellectual Function: Average Basis for IQ estimate: Awareness current events Attention/Concentration & Cogn: Impaired Insight: Good Judgement: Limited Mental Health Plan The patient is a 60-year-old white female who has been struggling with health issues related to obesity, and chronic pain. The patient has a history of successful employment and being able to participate in a 12 step program actively for 10 years. She recently had her primary care doctor refuse to prescribe hydrocodone which she was taking four times a day. She has been off this for the past month. Since then, she has lost her home due to not being able to pay for the rent, and she was unable to buy her Abilify, gabapentin, or Celexa. She reportedly saw suicide as the only option and took 20 pills in a suicide attempt. The patient reports continued sedation despite not receiving aripiprazole last evening or this morning. She reports an improvement in her passive suicidal thoughts and inability to stop them. Patient reports anxiety/depression somewhat improved. Patient still working on finding housing. [place] AXIS I: 1. Bipolar disorder, depressed without psychotic features. 2. Alcohol use disorder 3. Cannibis use disorder AXIS II: Deferred. AXIS III: History of fibromyalgia, hypertension, reported cardiomyopathy. AXIS IV: Severe. AXIS V: Current Global Assessment of Functioning equal to 35. Medications Gabapentin 300 mg 3 times a day Lorazepam 1 mg every 4 hours as needed for anxiety Citalopram 40 mg daily Hydroxyzine 50 mg every 4 hours as needed for anxiety or agitation Mirtazapine 15 mg nightly Aripiprazole 10 mg nightly Treatments 1. The patient is admitted to the inpatient unit and will be provided a safe and secure environment. 2. The patient is reporting passive suicidal ideation but is denying current active suicidality and is not in need of a one-to-one at this time. 3. The patient is encouraged to participate with group and milieu activities. 4. The patient will be seen by the treatment team on a daily basis to assess symptoms, side effects and response to treatment. 5. The patient will be continued on citalopram 40 mg daily. 6. The patient will be continued on mirtazapine 15 mg nightly and consider increasing as indicated for augmentation. 7. Gabapentin 300 mg three times a day for pain. 8. Aripiprazole change to 10 mg po nightly. 9. Anticipated length of stay is 3-5 days. Benny Molina MD Jul 07, 2016 15:29
[2016-07-07] MEDS ORDERED: ARIPiprazole 10 mg Tablet PO SCH (21:00)
[2016-07-08] MEDS: LORazepam 1 mg Tablet PO PRN (08:21)
[2016-07-08] MEDS: Tiotropium 18mcg/Cap 5 Capsule Inhaler Kit INHALATION SCH (08:22)
--- NOTE | 2016-07-08 13:49 | PCM.DIMED ---
Discharge Instructions Date of Service Jul 08, 2016 Dates of Hospitalization Jun 30, 2016 at 15:00 Discharge Diagnosis Discharge Diagnosis AXIS I: 1. Bipolar disorder, depressed without psychotic features. 2. Alcohol use disorder 3. Cannibis use disorder AXIS II: Deferred. AXIS III: History of fibromyalgia, hypertension, reported cardiomyopathy. AXIS IV: Severe. AXIS V: Current Global Assessment of Functioning equal to 50 Test Results CBC Test 06/30/16 09:33 White Blood Count 15.1th/mm3 (3.8-10.1) Red Blood Count 4.76mil/mm3 (3.90-5.20) Hemoglobin 15.5g/dL (12.0-15.6) Hematocrit 45.7% (35.0-46.0) Mean Corpuscular Volume 96.0fL (81-100) Mean Corpuscular Hemoglobin 32.6pg (27.0-35.0) Mean Corpuscular Hemoglobin Concent 33.9% (32.0-37.0) Red Cell Distribution Width 12.3% (12.3-15.4) Platelet Count 269bil/L (150-400) Neutrophils (%) (Auto) 80.7% (40-74) Lymphocytes (%) (Auto) 11.9% (14-46) Monocytes (%) (Auto) 6.4% (4-12) Eosinophils (%) (Auto) 0.6% (0-5) Basophils (%) (Auto) 0.2% (0-3) CMP Test 06/30/16 09:33 Sodium Level 140mEq/L Potassium Level 3.9mEq/L Chloride Level 102mEq/L Carbon Dioxide Level 21mmol/L Blood Urea Nitrogen 11mg/dL Creatinine 0.68mg/dL Estimat Glomerular Filtration Rate 127mL/min Glucose Level 89mg/dL Calcium Level 9.8mg/dL Total Bilirubin 0.6mg/dL Aspartate Amino Transf (AST/SGOT) 17U/L Alanine Aminotransferase (ALT/SGPT) 7U/L Alkaline Phosphatase 77U/L Total Protein 7.2g/dL Albumin 4.7g/dL Thyroid Stimulating Hormone (TSH) 1.230uIU/mL Diet No restrictions Activity No restrictions Patient Instructions Should you have any thoughts of harming yourself or others, please call the crisis line, your provider, 911, or go to the nearest Emergency Department. Do not change or discontinue your medications without discussing with your provider. You have been given a prescription for 30 days supply of your medication Follow-up plan Primary Care: Dr. Denny Nuñez DO on 07/11/16 at 10:45am [id number] [place] [address] Benny Molina MD Jul 08, 2016 12:58
[2016-07-08] MEDS ORDERED: TIOT18CA3 IH (13:54)
[2016-07-08] MEDS ORDERED: ARIP10TA14 PO (13:54)
[2016-07-08] MEDS ORDERED: MIRT15TA3 PO (13:54)
[2016-07-08] MEDS ORDERED: GABA-502 PO (13:54)
[2016-07-08] MEDS ORDERED: ALBU18HF INHALATION (13:54)
[2016-07-08] MEDS ORDERED: HYDR50CA3 PO (13:54)
[2016-07-08] MEDS ORDERED: AMLO5TAB2 PO (13:54)
[2016-07-08] MEDS ORDERED: CITA40TA13 PO (13:54)
[2016-07-08] MEDS ORDERED: LORA-303 PO (13:54)
[2016-07-08 17:50] VITALS: BP 132/83; PULSE 93; RESP 18
--- NOTE | 2016-07-10 15:39 | PCM.DC.MED ---
Discharge Summary Date of Service Jul 08, 2016 Dates of Hospitalization Date of Hospital Admission Jun 30, 2016 at 15:00 Date of Discharge: Jul 08, 2016 Providers: Admitting Physician: Corey Villaseñor MD Primary Care Physician: Abner Malik Attending Physician: Corey Villaseñor MD Diagnosis at Time of Discharge Diagnosis at Time of Discharge AXIS I: 1. Bipolar disorder, depressed without psychotic features. 2. Alcohol use disorder 3. Cannibis use disorder AXIS II: Deferred. AXIS III: History of fibromyalgia, hypertension, reported cardiomyopathy. AXIS IV: Severe. AXIS V: Current Global Assessment of Functioning equal to 50 Procedures Other Diagnostics CBC Test 06/30/16 09:33 White Blood Count 15.1th/mm3 (3.8-10.1) Red Blood Count 4.76mil/mm3 (3.90-5.20) Hemoglobin 15.5g/dL (12.0-15.6) Hematocrit 45.7% (35.0-46.0) Mean Corpuscular Volume 96.0fL (81-100) Mean Corpuscular Hemoglobin 32.6pg (27.0-35.0) Mean Corpuscular Hemoglobin Concent 33.9% (32.0-37.0) Red Cell Distribution Width 12.3% (12.3-15.4) Platelet Count 269bil/L (150-400) Neutrophils (%) (Auto) 80.7% (40-74) Lymphocytes (%) (Auto) 11.9% (14-46) Monocytes (%) (Auto) 6.4% (4-12) Eosinophils (%) (Auto) 0.6% (0-5) Basophils (%) (Auto) 0.2% (0-3) CMP Test 06/30/16 09:33 Sodium Level 140mEq/L Potassium Level 3.9mEq/L Chloride Level 102mEq/L Carbon Dioxide Level 21mmol/L Blood Urea Nitrogen 11mg/dL Creatinine 0.68mg/dL Estimat Glomerular Filtration Rate 127mL/min Glucose Level 89mg/dL Calcium Level 9.8mg/dL Total Bilirubin 0.6mg/dL Aspartate Amino Transf (AST/SGOT) 17U/L Alanine Aminotransferase (ALT/SGPT) 7U/L Alkaline Phosphatase 77U/L Total Protein 7.2g/dL Albumin 4.7g/dL Thyroid Stimulating Hormone (TSH) 1.230uIU/mL Brief History Per Dr. Escobedo history and physical from 07/01/2016: IDENTIFICATION: Patient is a 60-year-old single white female. She recently was evicted from her apartment. She is on Social Security Disability for bipolar disorder. REASON FOR ADMISSION: Client to the emergency room after a suicide attempt by overdose. She stated that she took 20 sleeping pills in a suicide attempt, brand name Doxylamine at 7 :30 a.m. on June 30. She was admitted for safety and treatment. HISTORY OF PRESENT ILLNESS: The patient presents today for evaluation and treatment of depression and suicidal ideation. I met with her for a 60 minute evaluation and reviewed course and records kept by Ye Jacobs. The patient's main issue is depression, and she is complaining of suicidal ideation with a plan to overdose on her pills. The condition has been developing over the past month. At present, it is of a moderate intensity manifesting with symptoms of poor sleep, interest, guilt, poor energy, concentration, and now suicidal ideation. She stated she has thought of killing herself all day every day for the past month. All the above is made worse by three different stressors. Number one, she lost her money and is being evicted from her apartment. Two, she has lost her money and has been off all of her medications because she cannot buy the Abilify or the Celexa. Three, she had been on hydrocodone 10 mg four times a day, and she got a new doctor last month and all of her hydrocodone has been cut off. She received some temporary relief by smoking marijuana daily. She has been a severe alcoholic in the past but had 10 years of sobriety in her 30s and has been sober for the past three years from alcohol. She is currently presenting with significant emotional liability and poor impulse control. Her judgment, insight, and reality testing are all quite good. Her coping skills have been overwhelmed Hospital Course The patient was restarted on her outpatient medications but continued to express hopelessness and suicidal thoughts. Aripiprazole was increased to 10 mg initially in the morning and then switched back to bedtime due to daytime drowsiness. The patient found this very helpful in improving her mood and reducing her suicidal thoughts. One of the biggest stressors for the patient was her lack of housing and she was assisted in finding a shared housing arrangement and by the time of discharge was quite hopeful. At the time of discharge, the patient was reporting her mood as hopeful, 8/10." She reported that her son would be driving her to see the new apartment in [place]. Sleep was reported as "better," 7.5 hours per staff and appetite was reported as fine." Her anxiety was reported as 6/10 and depression as 7/10. She denied auditory or visual hallucinations and any thought, intent or plan of hurting herself or others. Exam Vital Signs (Last) Date Time Temp Pulse Resp B/P Pulse Ox O2 Delivery O2 Flow Rate FiO2 07/08/16 17:50 36.4 93 18 132/83 Exam Discharge Mental Status Exam Appearance: Unkept Attitude: Pleasant, Cooperative Behavior: Other (lethargic) Affect: Restricted, with occasional smiles Mood: "hopeful, 8/10" Thought Process/Associations: Goal Directed Speech Production: Normal Speech Rate: Normal Speech Articulation: Normal Thought Content: Negativistic, but improving Danger to Self/Suicidal Ideation: Denies Danger to Others: None Hallucinations: Auditory (Denies), Visual (Denies) Consciousness: Somnolent, Lethargic Orientation: Person, Place, Date, Situation Memory: Grossly Intact Estimate Intellectual Function: Average Basis for IQ estimate: Awareness current events Attention/Concentration & Cognition: Fair Insight: Good Judgement: Fair AIMS: 0 Test 06/30/16 09:33 06/30/16 09:44 White Blood Count 15.1th/mm3 (3.8-10.1) Red Blood Count 4.76mil/mm3 (3.90-5.20) Hemoglobin 15.5g/dL (12.0-15.6) Hematocrit 45.7% (35.0-46.0) Mean Corpuscular Volume 96.0fL (81-100) Mean Corpuscular Hemoglobin 32.6pg (27.0-35.0) Mean Corpuscular Hemoglobin Concent 33.9% (32.0-37.0) Red Cell Distribution Width 12.3% (12.3-15.4) Platelet Count 269bil/L (150-400) Neutrophils (%) (Auto) 80.7% (40-74) Lymphocytes (%) (Auto) 11.9% (14-46) Monocytes (%) (Auto) 6.4% (4-12) Eosinophils (%) (Auto) 0.6% (0-5) Basophils (%) (Auto) 0.2% (0-3) Sodium Level 140mEq/L (134-144) Potassium Level 3.9mEq/L (3.5-5.2) Chloride Level 102mEq/L (97-108) Carbon Dioxide Level 21mmol/L (18-29) Blood Urea Nitrogen 11mg/dL (6-24) Creatinine 0.68mg/dL (0.57-1.00) Estimat Glomerular Filtration Rate 127mL/min (>59) Glucose Level 89mg/dL (60-99) Calcium Level 9.8mg/dL (8.5-10.1) Total Bilirubin 0.6mg/dL (0.0-1.2) Aspartate Amino Transf (AST/SGOT) 17U/L (0-50) Alanine Aminotransferase (ALT/SGPT) 7U/L (0-32) Alkaline Phosphatase 77U/L (25-150) Total Protein 7.2g/dL (6.4-8.4) Albumin 4.7g/dL (3.4-5.0) Thyroid Stimulating Hormone (TSH) 1.230uIU/mL (0.450-4.500) Salicylates Level < 3.0ug/mL (30-250) Acetaminophen Level < 15.0ug/mL Rx (10-25) Urine Color Yellow (YELLOW) Urine Appearance Clear (CLEAR,HAZY) Urine pH 6.0 (5.0-8.0) Urine Specific [place] 1.010 (1.003-1.035) Urine Protein Negativemg/dL (NEG,TRACE) Urine Glucose (UA) Negativemg/dL (NEGATIVE) Urine Ketones Negativemg/dL (NEGATIVE) Urine Occult Blood Trace (NEGATIVE) Urine Nitrite Negative (NEGATIVE) Urine Bilirubin Negative (NEGATIVE) Urine Urobilinogen Normalmg/dL (NORMAL) Urine Leukocyte Esterase Negative (NEGATIVE) Urine RBC 0-2/hpf (0-2) Urine WBC 0-5/hpf (0-5) Urine Epithelial Cells Moderate/hpf (NONE-MOD) Urine Crystals None seen (NONE SEEN) Urine Bacteria Few/hpf (NONE-FEW) Urine Hyaline Casts None/lpf (NONE) Urine Granular Casts None seen (NONE SEEN) Urine Waxy Casts None seen (NONE SEEN) Urine Red Blood Cell Casts None seen (NONE SEEN) Urine White Blood Cell Casts None seen (NONE SEEN) Urine Mucus Present (None Seen) Urine Trichomonas None seen (NONE SEEN) Urine Yeast None (NONE SEEN) Urinalysis Comment None Urine Culture Reflexed Not indicated Hold Urine Received (Received) Discharge Medications Discharge Medications Amlodipine (Amlodipine) 5 Mg Tablet 5 MG PO DAILY Prescribed by: MELINDA MOLINA MD Aripiprazole (Abilify) 10 Mg Tablet 10 MG PO HS Prescribed by: MELINDA MOLINA MD Citalopram (Citalopram) 40 Mg Tablet 40 MG PO DAILY Prescribed by: MELINDA MOLINA MD Gabapentin (Gabapentin) 300 Mg Capsule 300 MG PO TID Prescribed by: MELINDA MOLINA MD Mirtazapine ODT (Remeron ODT) 15 Mg Tab.rapdis 15 MG PO HS Prescribed by: MELINDA MOLINA MD Tiotropium [place] (Spiriva) 18 Mcg Cap.w.dev 18 MCG IH DAILY Prescribed by: MELINDA MOLINA MD As needed Albuterol Sulfate (Ventolin HFA Inhaler) 200 Puff/18 Gm Inhaler 2 PUFF INHALATION Q4 PRN PRN For Shortness of Breath Prescribed by: MELINDA MOLINA MD Hydroxyzine Pamoate (HydrOXYzine Pamoate) 50 Mg Capsule 50 MG PO TID PRN PRN FOR ANXIETY,AGIT, OR INSOMNIA Prescribed by: MELINDA MOLINA MD Lorazepam (Ativan) 1 Mg Tablet 1 MG PO BID PRN PRN SEE INSTRUCTIONS Prescribed by: MELINDA MOLINA MD Followup Plan Disposition: No indication for further hospitalization at this time and the patient is requesting discharge. She will be picked up by her son and taken to her potential new apartment this afternoon. The patient verbally consented to take the prescribed medications. The patient verbally expressed understanding of the risks, benefits, alternative treatment options, and risks of not taking the prescribed medication. The patient verbally expressed understanding of the medication instructions, that she will adhere to the prescribed medication, and that she will go to all aftercare scheduled appointments. Follow-up plan Primary Care: Dr. Denny Nuñez, on 07/11/16 at 10:45am [place] [id number] [place] [address] Discharge Diet: No restrictions Discharge Activity: No restrictions Patient Instructions Should you have any thoughts of harming yourself or others, please call the crisis line, your provider, 911, or go to the nearest Emergency Department. Do not change or discontinue your medications without discussing with your provider. You have been given a prescription for 30 days supply of your medication Melinda Molina MD Jul 08, 2016 20:01
== END 2016-07-08 14:40 | disposition home or self-care (01) | DRG 918 ==
LOC: SED 08:30 → MHC 15:00
PROVIDERS: ADMIT Psychiatry & Neurology Psychiatry; ATTEND Psychiatry & Neurology Psychiatry
DX: T45.0X2A Poisoning by antiallergic and antiemetic drugs, intentional self-harm, initial encounter (principal); F31.4 Bipolar disorder, current episode depressed, severe, without psychotic features; R45.851 Suicidal ideations; F17.210 Nicotine dependence, cigarettes, uncomplicated; Z59.8 Other problems related to housing and economic circumstances; T43.226A Underdosing of selective serotonin reuptake inhibitors, initial encounter; Z91.120 Patient's intentional underdosing of medication regimen due to financial hardship; F12.10 Cannabis abuse, uncomplicated